=== PATIENT | female | born 1945 | race African-American/Black ===

== ENCOUNTER 2018-05-12 16:48 | Observation (INO) | payer MEDICARE ==
[~2018-05-12 16:48] MED LIST: ISOVUE-370 76%-LOCM 1 ML ONE
--- NOTE | 2018-05-12 17:21 | CT ---
CT HEAD WITHOUT CONTRAST: 05/12/18 Multiple axial tomograms obtained through the head without IV enhancement. INDICATIONS: Stroke alert. Right sided facial weakness and lethargy. Ventricles have normal size and position. There are mild chronic ischemic white matter changes. There is no evidence of acute cortical infarct. There is lucency in the both basal ganglia regions which c ould represent new or acute lacunar infarcts. MRI could be performed to assess if indicated. IMPRESSION: No evidence of acute cortical infarct. Findings relayed to Dr. Quintana at 5 p.m. POS: [facility]
[2018-05-12 17:25] LABS: #Eosinphils 0.1 thou/uL (0.0-0.7); #Lymphocytes 1.8 thou/uL (1.20-3.40); #Monocytes 0.6 thou/uL (0.11-0.59); #Neutrophils 2.2 thou/uL (1.40-6.50); %Basophils 0.5 % (0.0-1.0); %Eosinophils 2.9 % (0.0-10.0); %Lymphocytes 38.3 % (21.0-51.0); %Monocytes 11.8 % (0.0-10.0); %Neutrophils 46.5 % (42.0-75.0); Hemoglobin 9.2 g/dL (12.0-16.0); Mean Corpuscular HGB CONC 32.7 g/dL (32.0-36.0); Mean Corpuscular Volume 88.7 fL (78.0-98.0); Mean Platelet Volume 6.9 fL (7.4-10.4); Platelet Count 296 thou/uL (130-400); RBC Distribution Width 12.8 % (11.5-14.5); Red Blood Cell (RBC) Count 3.19 mill/uL (4.20-5.40); White Blood Cell (WBC) Count 4.7 thou/uL (4.8-10.8)
[2018-05-12 17:32] LABS: INR-International Normal Ratio 1.2; PTT 33.3 SEC (22.9-36.1); Prothrombin Time 14.9 SEC (12.0-14.7)
[2018-05-12 17:38] LABS: ALT (SGPT) Less than 7 U/L (8-55); AST (SGOT) 9 U/L (5-34); Alkaline Phosphatase 58 U/L (40-150); Anion Gap 13 mmol/L (10-20); BUN (Urea Nitrogen) 11 mg/dL (9.8-20.1); Bilirubin, Total Less than 0.2 mg/dL (0.2-1.2); CK (CPK) 35 U/L (29-168); Calc. Creatinine Clearance 0 mL/min (70-130); Calcium 8.4 mg/dL (7.8-10.44); Carbon Dioxide 23 mmol/L (23-31); Chloride 100 mmol/L (98-107); Estimated GFR-MDRD 52; Globulin 2.5 g/dL (2.4-3.5); Glucose 119 mg/dL (83-110); Potassium 3.7 mmol/L (3.5-5.1); Protein, Total 5.5 g/dL (6.0-8.3); Sodium 132 mmol/L (136-145)
[2018-05-12] MEDS ORDERED: Aspirin 325 MG TAB ONE (17:41)
[2018-05-12 17:42] LABS: CKMB 0.2 ng/mL (0-6.6); Troponin I Less than 0.010 ng/mL (< 0.028)
--- NOTE | 2018-05-12 18:42 | CT ---
CT HEAD WITH IV CONTRAST AND 3D POSTPROCESSING CT NECK WITH IV CONTRAST AND 3D POSTPROCESSING 05/12/18 HISTORY: Stroke alert, right sided weakness and facial droop and slurred speech. FINDINGS: Calcified plaque is seen in the common carotid and internal carotid arteries on both sides. There is moderate (50-69%) stenosis of the origin of the right ICA with probable ulcerated plaque. There is st enosis in the cavernous portions of the ICAs bilaterally, right worse than left. There is good flow i n the MCAs on either side. Good flow without significant stenosis seen in the vertebral arteries and the basilar artery. No major branch occlusion or aneurysm formation is identified. Multiple lesions are seen in the thyroid gland which would be better evaluated with an ultrasound on a nonemergent basis. There is prominence of the submandibular ducts. IMPRESSION: 1. Stenosis of the cavernous portions of the ICAs bilaterally. No evidence of major branch occlu boo or aneurysm formation. 2. Moderate (50-69%) stenosis of the right proximal ICA. This exam was interpreted with consultation with Dr. Carroll Carmen who concurs. The report was called over the telephone to ER physician, Dr. Gavin Quintana at 5:48 p.m. POS: [facility]
[2018-05-12 22:09] VITALS: BMI 16.8
[2018-05-13] MEDS ORDERED: Cipro 250 MG TAB PO SCH (09:00)
[2018-05-13] MEDS ORDERED: Aspirin 325 MG TAB PO SCH ×3 (09:00→15:15)
[2018-05-13] MEDS ORDERED: Acetaminophen 325 MG TAB PO PRN (12:14)
[2018-05-13] MEDS ORDERED: traMADol HCl 50 MG TAB PO PRN (12:14)
[2018-05-13] MEDS ORDERED: Morphine 2 MG/ML SYRINGE SLOW IVP PRN (12:14)
--- NOTE | 2018-05-13 16:24 | MRI ---
MRI OF BRAIN WITHOUT CONTRAST: 05/13/18 Multiplanar and multisequential imaging of the brain obtained. INDICATION: TIA versus CVA. FINDINGS: Ventricles have normal size and position. Mild to moderate chronic ischemic white matter change is no norma. No evidence of restricted diffusion. There is no evidence of acute infarct, mass, or edema. No hemorrhage seen. The flow voids of the intracranial internal carotid arteries are narrowed consistent with the finding s on recent CT angio. IMPRESSION: Mild to moderate chronic ischemic white matter change. No evidence of acute infarct. POS: [facility]
[2018-05-13] MEDS: Sodium Chloride 0.9% 1,000 ML IV SCH (16:40)
[2018-05-13] MEDS: Docusate 100 MG CAP PO SCH (16:59)
[2018-05-13] MEDS: Metoprolol Tartrate 25 MG TAB PO SCH ×2 (16:59→20:51)
[2018-05-13] MEDS: Amlodipine 5 MG TAB PO SCH (16:59)
[2018-05-13] MEDS: Ferrous Sulfate 325 MG TAB PO SCH (16:59)
[2018-05-13] MEDS: Oxybutynin 5 MG TAB PO SCH (17:00)
[2018-05-13] MEDS: Rosuvastatin 10 MG TAB PO SCH (17:00)
--- NOTE | 2018-05-13 17:39 | RAD ---
PORTABLE CHEST: 05/13/18 HISTORY: Cough, fever. COMPARISON: None. Heart size is within normal limits. There are postop sternotomy changes. There are atherosclerotic ch anges of the aorta. The lungs are clear of infiltrates. Bones are demineralized. IMPRESSION: No active intrathoracic disease. POS: [facility]
--- NOTE | 2018-05-13 20:23 | HP ---
PRIMARY CARE PHYSICIAN: Binta Tabares M.D. CHIEF COMPLAINT: Change in mental status and right-sided weakness. HISTORY OF PRESENT ILLNESS: This is a 73-year-old female patient with a past medical history of hyperlipidemia, high cholesterol, hypertension, hemorrhagic stroke with left-sided residual weakness. The patient was brought to the hospital by EMS complaining of change in mental status, it looks like the patient was looking normal 20-30 minutes before arrival. They reported that the patient had right facial droop, lethargy, slurred speech, worsening confusion. The symptoms started suddenly. No clear triggers, no alleviating factors. REVIEW OF SYSTEMS: Unable to obtain. The patient is confused. PAST SURGICAL HISTORY: Coronary artery bypass graft surgery of 3-vessel, surgical history of hysterectomy. PAST MEDICAL HISTORY: As mentioned in the HPI. PSYCHIATRIC: No prior psychiatric history. SOCIAL HISTORY: Patient used tobacco, less than 0.5 packs per day. ALLERGIES: MEDHAT INHIBITOR reported. MEDICATIONS: Gabapentin, metoprolol, famotidine, B12, ciprofloxacin, oxybutynin , Colace, tramadol, nitroglycerin, rosuvastatin, ferrous sulfate, amlodipine. PHYSICAL EXAMINATION: VITAL SIGNS: On presentation, blood pressure 137/89, with occasional blood pressure went up to 230/139, heart rate 81, respiratory rate was 14, oxygen saturation was 100 on room air. GENERAL APPEARANCE: The patient is still confused. No acute distress. HEENT: Normocephalic, conjunctivae. Moist oral mucosa. Anicteric. NECK: No JVD. RESPIRATORY: Bilateral air entry. No rales, no wheezing. Symmetric expansion. CARDIOVASCULAR: Normal rate, regular rhythm. No murmurs, no gallop. No edema. ABDOMEN: Soft, normal bowel sounds. MUSCULOSKELETAL: Baseline range of motion and strength. No tenderness except for the right side neurological weakness. SKIN: Warm and intact. No pallor, no rash. No redness. Peripheral pulses present. Capillary refill seems to be intact. NEUROLOGIC: The patient seems to have new right-sided weakness and also some complaints of chest tenderness over the past week. IMAGING: The CAT scan was done. The patient had no evidence of acute cortical infarct. The CT angio was done and showed stenosis of the cavernous portion of the ICA bilateral. No evidence of major branch occlusion or an early small formation, moderate 50-69 stenosis of the right ICA. LABORATORY DATA: Reviewed. The patient had a white count of 4.7, hemoglobin 9.2, MCV 88.7. PT 14.9, INR 1.2, PTT 33.3. Chemistry: Sodium 132, potassium 3.7, chloride 100, carbon dioxide was 23 with anion gap 13, BUN 11, creatinine 1.0, GFR 52, glucose 119, calcium 9.4, total bilirubin less than 0.2. AST 9, ALT less than 7, alkaline phosphatase was normal. Albumin 3.0, globulin 2.5. ASSESSMENT AND PLAN: The patient was placed in the hospital with following medical problems: 1. Possible stroke, patient has a previous history of hemorrhagic stroke with previous deficits, we will do a stroke protocol, we will follow results and treat accordingly, Neurology consultation. 2. Hyponatremia, sodium 132, it is minimal, no need for any acute intervention at this point. We will monitor, we will treat accordingly. 3. Hyperlipidemia, reconcile home medications, low cholesterol diet is advised. 4. Uncontrolled hypertension. Patient presented with systolic blood pressure 230 and diastolic 139, we will allow permissive hypertension treated blood pressure more than 220/110, given the presentation with neurological symptoms. 5. Deep venous thrombosis prophylaxis. 6. History of gastroesophageal reflux disease. Continue famotidine. MTDD
[2018-05-13] MEDS ORDERED: Gabapentin 300 MG CAP PO SCH (21:00)
[2018-05-13] MEDS ORDERED: Famotidine 20 MG TAB PO SCH (21:00)
--- NOTE | 2018-05-13 22:25 | CON ---
DATE OF CONSULTATION: 05/13/2018 HISTORY OF PRESENT ILLNESS: This is a 73-year-old female with known history of cardiovascular diseas e. She had previous coronary artery bypass grafting many years ago in [place] and has been followe d by Dr. Regalado in this regard. She has had a previous history of peripheral arterial disease wit h rest pain in the left foot and has undergone a left external iliac artery stent. She has had a pre vious stroke in about 3 years ago underwent a left carotid endarterectomy. She presented at this paul e with some speech difficulties and some pain in her right arm. She has had CTA and MRI of the brain . The MRI showed no evidence of an infarction and CTA is essentially unchanged or only minimally leny nged from the study done several years ago. She has a widely patent left internal carotid artery fol lowing endarterectomy and has about a 50-60% stenosis of the right internal carotid artery and I do n ot appreciate an ulcerated plaque although the report suggested this. 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 Patient recently underwent removal of a bladder tumor and has had an indwelling Nettles catheter for th e past month in this regard. PAST MEDICAL HISTORY: She has a history of hypertension, diabetes mellitus, some level of aortic loki nosis, dyslipidemia, continued smoking a half pack a day. PAST SURGICAL HISTORY: Includes coronary artery bypass grafting, left carotid endarterectomy, hyster ectomy, tonsillectomy and TURBT. SOCIAL HISTORY: She lives with her , is in poor health. She continues to smoke about a half pack of cigarettes a day. ALLERGIES: She reports allergies to MEDHAT INHIBITORS and HYDROCODONE. PHYSICAL EXAMINATION: GENERAL: She is a thin, ill-appearing lady in no distress. NEUROLOGIC: At this time appears to be grossly intact. NECK: Examination of her neck does reveal a right carotid bruit. CARDIAC: Exam reveals a 2/6 systolic murmur at the right upper sternal border with a resting bradyca rdia. LUNGS: Clear to auscultation anteriorly. ABDOMEN: Scaphoid, nontender. EXTREMITIES: She has palpable femoral pulses with the left stronger than the right. I do not apprec iate any popliteal or pedal pulses. She has no peripheral edema. She has an indwelling Nettles cathet er with a leg bag. IMPRESSION AND PLAN: At this time, I do not think that she has had a symptomatic episode from her ri ght internal carotid artery stenosis and it appears to be less than 70% on multiple views on her CT a ngiogram. I would continue with aspirin therapy at this time and will follow her up with yearly mondragon tid ultrasounds.
[2018-05-14] MEDS: Sodium Chloride 0.9% 1,000 ML IV SCH (05:13)
[2018-05-14] MEDS: Rosuvastatin 10 MG TAB PO SCH (08:26)
[2018-05-14] MEDS: Docusate 100 MG CAP PO SCH (08:26)
[2018-05-14] MEDS: Metoprolol Tartrate 25 MG TAB PO SCH (08:26)
[2018-05-14] MEDS: Oxybutynin 5 MG TAB PO SCH (08:27)
[2018-05-14] MEDS: Ferrous Sulfate 325 MG TAB PO SCH (08:27)
[2018-05-14] MEDS: Amlodipine 5 MG TAB PO SCH (08:42)
[2018-05-14] MEDS ORDERED: Aspirin 325 MG TAB PO SCH (09:00)
--- NOTE | 2018-05-14 15:33 | DIS ---
DATE OF ADMISSION: 05/12/2018 DATE OF DISCHARGE: 05/14/2018 DISCHARGE DIAGNOSES: 1. Hypertensive encephalopathy. 2. Right carotid artery disease, medical management. 3. Hyponatremia, mild. 4. Hyperlipidemia, stable. 5. Hypertension, labile. 6. Indwelling Nettles catheter with gram positive cocci. 7. Cystitis. CONSULTATION: Dr. Draper with Vascular Surgery Service. PERTINENT LABORATORY DATA AND X-RAY FINDINGS: Sodium 132, creatinine 1.04. CBC showed white blood c ell count of 4.7, hemoglobin 9.2, hematocrit 28.3, platelet count 296. Urine culture dated 8 showed greater than 100,000 colonies of gram positive cocci. Blood cultures x2 dated 05/13/2018 sh owed no growth to date. CT of the brain without contrast dated 05/12/2018 showed no acute intracrani al process. CT angiogram of the neck showed moderate 50%-69% stenosis of the right proximal internal carotid artery. MRI of the brain dated 05/13/2018 showed no acute intracranial process. Chronic is chemic white matter changes noted. HOSPITAL COURSE: The patient was initially admitted after presenting with dysarthria and facial numb ness with associated elevated blood pressure of 230/139. The patient received aspirin and antihypert ensive medications with overall improvement in blood pressure trend. The patient underwent multiple neuroimaging studies showing no evidence of acute intracranial process. The patient's symptoms resol luci with hypertensive episode and patient remained clinically stable. The patient was noted with rig ht internal carotid artery stenosis, evaluated by the Vascular Surgery Service who recommended medica l management and no surgical intervention. The patient also underwent evaluation of her urinalysis s econdary to chronic indwelling Nettles catheter. The patient was noted with broad gram positive cocci in the urine culture and treated with levofloxacin 500 mg daily. The patient overall clinically stab ilized with general supportive care and antibiotic therapy. I have examined the patient at time of d ischarge and discussed followup instructions. The patient verbalized understanding and agreement an d ready for discharge on 05/14/2018. DISCHARGE MEDICATIONS: 1. Norvasc 5 mg 1 tab p.o. daily. 2. Ciprofloxacin 250 mg p.o. daily. 3. Colace 100 mg p.o. daily. 4. Pepcid 20 mg p.o. at bedtime. 5. Ferrous sulfate 325 mg p.o. daily. 6. Gabapentin 300 mg p.o. at bedtime. 7. Metoprolol tartrate 25 mg p.o. b.i.d. 8. Nitroglycerin 0.4 mg sublingually every 5 minutes p.r.n. chest pain. 9. Ditropan 10 mg p.o. daily. 10. Crestor 10 mg p.o. daily. 11. Tramadol 50 mg p.o. q.6 h. p.r.n. pain. 12. Enteric coated aspirin 81 mg p.o. daily. FOLLOWUP: The patient is to follow up with Dr. Binta Tabares within 7 days of discharge. The patient will follow up with Dr. Gabriel Leal and to call his office for followup on 05/16/2018. CONDITION ON DISCHARGE: Fair. ACTIVITY: Ad jeanette. DIET: Heart healthy. CODE STATUS: FULL. DISPOSITION: Home 05/14/2018.
[2018-05-14 15:47] VITALS: BP 140/64; TEMP 98.4
== END 2018-05-14 15:53 | disposition home or self-care (01) ==
LOC: 2SE 16:48 → ERS 16:48 → 2SE 17:45
PROVIDERS: ADMIT Internal Medicine; ATTEND Internal Medicine
DX: I67.4 Hypertensive encephalopathy (principal); E78.5 Hyperlipidemia, unspecified; E78.00 Pure hypercholesterolemia, unspecified; I10 Essential (primary) hypertension; I69.354 Hemiplegia and hemiparesis following cerebral infarction affecting left non-dominant side; F17.210 Nicotine dependence, cigarettes, uncomplicated; E87.1 Hypo-osmolality and hyponatremia; E11.9 Type 2 diabetes mellitus without complications; N30.90 Cystitis, unspecified without hematuria; B96.89 Other specified bacterial agents as the cause of diseases classified elsewhere; Z95.1 Presence of aortocoronary bypass graft; Z88.8 Allergy status to other drugs, medicaments and biological substances; Z79.899 Other long term (current) drug therapy; Z95.828 Presence of other vascular implants and grafts; Z79.82 Long term (current) use of aspirin; Z88.5 Allergy status to narcotic agent
CPT/HCPCS: 70450; 70496; 70498; 70551; 71045; 80053; 82550; 82553; 82962; 84484; 85025; 85610; 85730; 87040; 87077; 87086; 87186; 94760; 96361 ×2; 96365; 96366; 97116; 97139; 97530; 99285; G0378 ×2; G8978; G8979; G8987; G8988; 36415; 36416; 93005; G8996-GN-CH; G8997-GN-CH; G8998-GN-CH; J1956; J2997